=== PATIENT | male | born 1935 | race Caucasian/White ===

== ENCOUNTER 2019-05-24 13:53 | Inpatient (IN) ==
--- NOTE | 2019-05-24 14:52 | PROVIDER DOCUMENTATION ---
HPI-General Adult - General Chief Complaint: Rectal Bleeding Stated Complaint: RECTAL BLEEDING RECHECK Time Seen by Provider: 05/24/19 14:49 Source: patient, family Allergies/Adverse Reactions: Patient Allergies Allergy/AdvReac Type Severity Reaction Status Date / Time rivaroxaban [From Xarelto] AdvReac Unknown Verified 01/01/19 10:54 Home Medications: Home Medication List Medication Instructions Recorded Confirmed Last Taken Type Aspirin 325 mg PO DAILY 06/16/14 05/24/19 01/01/19 History Cholecalciferol (Vit D3) [Vitamin 5,000 mg PO DAILY 06/16/14 05/24/19 01/01/19 History D] LOVAstatin [Mevacor] 20 mg PO DAILY 06/16/14 05/24/19 12/31/18 History Levothyroxine Sodium [Synthroid] 88 mcg PO DAILY 06/16/14 05/24/19 12/31/18 History Potassium Chloride 2 tab PO DAILY 06/16/14 05/24/19 01/01/19 History Ascorbic Acid [Vitamin C] 1 cap PO DAILY 01/01/19 05/24/19 01/01/19 History Cyanocobalamin (Vitamin B-12) 1 tab PO QHS 01/01/19 05/24/19 12/31/18 History [Vitamin B12] Diltiazem HCl [Diltiazem 24Hr Cd] 1 tab PO DAILY 01/01/19 05/24/19 01/01/19 History Famotidine 2 tab PO DAILY 01/01/19 05/24/19 01/01/19 History Furosemide 1 tab PO DAILY 01/01/19 05/24/19 01/01/19 History Melatonin 1 cap PO QHS 01/01/19 05/24/19 12/31/18 History - History of Present Illness -Gen Adult Nature of Presenting Problems: 83yo male presents with CC of rectal bleeding. The patient reports hx of rectal bleeding back to the 16 of April with scope showing small ulcer with diverticulosis and polyps. Pt continued to follow up with PCP and was told his iron was low so he started to take it. Pt reports that he has been recently constipated. Pt reports he was seen yesterday for passing blood, and was cleared for discharge and was told to follow up with GI. He was concerned as bleeding had worsened with bright red blood this morning, but now has slowed down. The patient is not on a blood thinner and stopped his aspirin 2 days ago. Review of Systems - Adult - REVIEW OF SYSTEMS - ADULT Constitutional: reports: no symptoms reported, fever Eyes: reports: no symptoms reported. denies: eye pain Ears, Nose, Mouth & Throat: reports: no symptoms reported. denies: throat pain Cardiovascular: reports: no symptoms reported. denies: chest pain Respiratory: reports: no symptoms reported. denies: shortness of breath Gastrointestinal: reports: rectal bleeding. denies: abdominal pain Genitourinary: reports: no symptoms reported. denies: flank pain Musculoskeletal: reports: no symptoms reported Integumentary: reports: no symptoms reported Neurological: reports: no symptoms reported. denies: dizziness/vertigo Psychiatric: reports: no symptoms reported. denies: alcohol/drug dependence Endocrine: reports: no symptoms reported Hematologic/Lymphatic: reports: no symptoms reported Allergic/Immunologic: reports: no symptoms reported Past History - Adult - PAST MEDICAL HISTORY-ADULT Review of Records: reports: Old Records Reviewed Major Childhood Illnesses: reports: denies history Cardiovascular: reports: A-Fib, HTN, hyperlipidemia Respiratory: reports: COPD Gastrointestinal: reports: denies history Obstetrical/Gynecological: reports: denies history Genitourinary: reports: denies history Musculoskeletal: reports: denies history Neurological: reports: denies history Endocrine/Immune: reports: thyroid disorder Other Conditions: reports: denies history - PRIOR SURGERIES/PROCEDURES Surgical/Procedure History: reports: none - IMMUNIZATION STATUS Childhood Immunizations: See Nurse Assessment Flu Vaccine: See Nurse Assessment - FAMILY HISTORY Family History: reviewed, not pertinent Physical Exam-General - CONSTITUTIONAL General Appearance: appears well, alert, no apparent distress - EYES Eyes: pale conjunctivae. negative: conjuctival exudate, photophobia, sclera injected, scleral icterus - HEAD, EARS, NOSE, MOUTH & THROAT HENMT: moist mucous membranes, pharynx normal - NECK Neck: non-tender, supple - RESPIRATORY Respiratory: normal breath sounds, no respiratory distress - CARDIOVASCULAR Cardiovascular: no edema, other (irregular rhythm) - GASTROINTESTINAL (ABDOMEN) Abdominal Exam: non tender, soft. negative: guarding - GENITOURINARY Rectal Exam: black stool, hemorrhoids. negative: tenderness - MUSCULOSKELETAL Extremity: non-tender. negative: deformity, swelling - SKIN Integumentary: normal color, warm/dry - NEUROLOGIC Neurologic: grossly normal - PSYCHIATRIC Psych/Mental Status: normal mood/affect, normal thought content, normal thought process Progress - PLAN OF CARE/RESULTS Progress/Plan/Lab Results: Vital Signs - 8 hr 05/24/19 13:55 Temperature 98.0 F Pulse Rate 86 Respiratory Rate 18 Blood Pressure 110/71 O2 Sat by Pulse Oximetry 99 Result Diagrams: 05/24/19 16:21 05/24/19 16:21 - REASSESSMENT Reassessment #1 Status: other (Pt currently HDS. It was noted that HBG has dropped from 13 to 11, and patient did have melena on examination. Given that he is federico risk for GI bleeding will plan for admission. Discussed with the GI team who recomended admission to the hospitalist service. Discussed case with the hospitalist team who has accepted the patient.) Departure - Departure Date of Disposition Decision: 05/24/19 Time of Disposition Decision: 18:56 DIAGNOSIS: GI bleed Qualifiers: GI bleed type/associated pathology: melena Qualified Code(s): K92.1 - Melena Disposition: ADMITTED INPATIENT 09 Certified Medical Emergency: Emergent Condition: Fair Referrals and Follow-Ups: Erich Black MD [Primary Care Provider] - - Critical Care Note This patient required my direct & personal management of CC.: No Attestation - Physician/ LES Attestation Patient care was provided by Advanced Practice Provider:: No The physician spent face to face time with patient:: Yes Advanced Practice Provider documentation review:: Supervising physician onsite and consulted in the evaluation and care of this patient. The physician did have a face to face encounter with the patient.
[2019-05-24 16:44] LABS: BASO# 0.02 X1000 (0.0-0.2); BASO% 0.2 % (0.0-0.8); EOS# 0.13 X1000 (0.0-0.7); EOS% 1.3 % (0.0-10.0); HEMATOCRIT 35.7 % (42.0-52.0); HEMOGLOBIN 11.1 g/dL (14.0-18.0); IMM GRAN# 0.02 X1000 (0.0-0.04); IMM GRAN% 0.2 % (0.0-0.5); LYMPH# 1.84 X1000 (1.2-3.4); LYMPH% 17.8 % (20.5-51.1); MCH 27.5 PG (27-31); MCHC 31.1 g/dL (33-37); MCV 88.6 FL (81-99); MONO# 1.37 X1000 (0.11-0.59); MONO% 13.3 % (1.7-9.3); MPV 8.7 FL (7.4-10.4); NEUT# 6.94 X1000 (1.4-6.5); NEUT% 67.2 % (42.2-75.2); PLT 282 X1000 (130-400); RBC 4.03 XMIL (4.7-6.1); RDW 16.2 % (11.5-14.5); WBC 10.32 X1000 (4.8-10.8)
[2019-05-24 16:54] LABS: INR 1.19; PROTIME 15.3 Seconds (11.0-16.0)
[2019-05-24 16:55] LABS: PTT 28.7 Seconds (22.3-41.8)
[2019-05-24 17:11] LABS: AGAP 13; ALB/GLOB RATIO 1.3; ALBUMIN 3.6 g/dL (3.5-5.0); ALKALINE PHOSPHATASE 55 U/L (32-122); BUN 30 mg/dL (8-22); CALCIUM 8.7 mg/dL (8.8-10.2); CHLORIDE 106 mmol/L (98-107); COSMO 288; CREATININE 0.8 mg/dL (0.7-1.2); ESTIMATED GFR > 60; GLUCOSE 100 mg/dL (70-104); GOT 16 U/L (10-34); GPT 11 U/L (10-44); POTASSIUM 4.1 mmol/L (3.5-5.1); SODIUM 141 mmol/L (136-145); TCO2 22 mmol/L (25-35); TOTAL BILIRUBIN 0.34 mg/dL (0.20-1.00); TOTAL PROTEIN 6.4 g/dL (6.3-8.3)
[2019-05-24] MEDS ORDERED: SODIUM CHLORIDE 0.9% INJ ONE ×2 (17:53→18:17)
[2019-05-24] MEDS ORDERED: PROTONIX IV ONE (17:53)
[2019-05-24] MEDS ORDERED: CARDIZEM CD PO SCH (19:45)
[2019-05-24] MEDS ORDERED: ZOFRAN IV PRN (20:45)
[2019-05-24] MEDS: CARDIZEM CD PO SCH (22:34)
[2019-05-24] MEDS: NS 1,000 ML IV SCH (22:35)
[2019-05-24] MEDS: PROTONIX IV SCH ×2 (22:37→23:54)
[2019-05-24 23:03] LABS: HEMATOCRIT 33.2 % (42.0-52.0); HEMOGLOBIN 10.5 g/dL (14.0-18.0)
--- NOTE | 2019-05-25 01:14 | HISTORY AND PHYSICAL ---
ADDENDUM: I have seen and examined Mr. Peres today. Mr. Peres presents to the hospital this afternoon because of rectal bleed. Mr. Peres refers that about a week ago he had both upper and lower GI evaluation by Dr. Loredo. He was told that he has some ulcer in his upper GI studies. Yesterday, he was seen in the ER because of ongoing rectal bleed but was not admitted. However, when he went home, he continued having bright red blood per rectum every time he uses the restroom. Today, he said he was told by the ER provider that the rectal exam did show dark stool. His hemoglobin, which was 12.9 yesterday, is down to 11.1 today. OBJECTIVE: His current physical exam, for the most part, is unremarkable. LABORATORY DATA: Has also been reviewed. No major changes. ASSESSMENT: 1. Enterorrhagia of unclear etiology. The patient will be admitted. We will continue to monitor his H H. We will transfuse if necessary. We will get his GI team to evaluate him. 2. Clinical volume depletion. We will start the patient on gentle IV fluids overnight. 3. History of atrial fibrillation. Currently rate controlled. The patient is on diltiazem. We will start him back. 4. Hypothyroidism. Patient is on levothyroxine. 5. We will also continue to monitor and manage all his other comorbidities. I reviewed my findings with him and the plan with him and the son, who was at the bedside at the time of the encounter. Please refer to the details of the history and physical that has been dictated by the LAB COURIER in the chart. I have discussed the plan with her. cc: Wan Sterling MD
--- NOTE | 2019-05-25 02:17 | HISTORY AND PHYSICAL ---
PRIMARY CARE PROVIDER: Lex Black MD. He also follows the [facility]. RIVET SORTER: Marcela Loredo MD. CHIEF COMPLAINT: Rectal bleeding. HISTORY OF PRESENT ILLNESS: Mr. Peres is an 83-year-old male with a past medical history of atrial fibrillation on Cardizem and low-dose aspirin, hypertension, hyperlipidemia, hypothyroidism. He reports back on April 16, he had a upper and lower GI where Dr. Loredo found ulcers and biopsied some polyps. Also, on May 06 at the [facility], he went and had a physical that showed he had low iron. His primary care provider started him on iron supplement. He reports that he has had hemorrhoids in the past with a hemorrhoidectomy. He stated 2 days ago he started having bright red blood per rectum. He came to the ED yesterday to be evaluated. His hemoglobin and hematocrit was normal. However, after he got home he started having bloody bowel movements every 2 hours since that turned into dark stools. He came to the ED to be re-evaluated. His hemoglobin and hematocrit went from 12 and 40 down to 11 and 35. Hemoccult positive. Hemodynamically stable. Dr. Fonseca will see him in the a.m. We will place him on a clear liquid diet and proton pump inhibitor. He denies any hematemesis, hematuria, nausea, vomiting, diarrhea, chest pain, shortness of breath, weakness, fever, chills, palpitations, or abdominal pain. PAST MEDICAL HISTORY: Atrial fibrillation, hypertension, hemorrhoids, hyperlipidemia, hypothyroidism, iron-deficiency anemia. PAST SURGICAL HISTORY: Basal cell carcinoma removed on the nose years ago, hemorrhoidectomy, colonoscopy and upper endoscopy on April [address] Loredo. FAMILY HISTORY: Reviewed noncontributory. SOCIAL HISTORY: Sons at bedside. He was a smoker for 47 years, 3 packs per day. He quit more than 20 years ago. He was a heavy alcohol drinker till 1990. No alcohol since then. No marijuana or illicit drug use. REVIEW OF SYSTEMS: Twelve-point review of systems complete and negative except for those mentioned in HPI. ALLERGIES: Xarelto, he reports he had hematuria just after 1 dose. HOME MEDICATIONS: 1. Vitamin D3 5000 units p.o. daily. 2. Lovastatin 20 mg p.o. daily. 3. Synthroid 88 mcg p.o. daily. 4. Potassium chloride 2 tablets p.o. daily. 5. Vitamin C 1 capsule p.o. daily. 6. Vitamin B12 1 tab p.o. at bedtime. 7. Cardizem CD 1 tab p.o. daily. 8. Pepcid 2 tablets p.o. daily. 9. Lasix 1 tab p.o. daily. 10. Melatonin 1 capsule p.o. at bedtime. 11. Should be taking ferrous sulfate, however, we do not have that dosage yet. PHYSICAL EXAMINATION: VITAL SIGNS: Temperature is 98 degrees, heart rate 86, respirations 18, blood pressure 110/71, O2 saturation is 99% on room air. GENERAL: Mr. Peres is an 83-year-old male who is sitting up in the bed, in no acute distress. HEENT: Atraumatic, normocephalic. PERRL. He does have some type of growth on the lateral left side of his tongue. He reports he has had it checked out before, they did not really know what it is. NECK: Supple. Trachea midline. CARDIOVASCULAR: Irregularly irregular. No murmurs, gallops, or rubs noted. RESPIRATORY: Lung sounds clear bilaterally. GASTROINTESTINAL: Abdomen is soft, nontender, nondistended. Positive bowel sounds 4 quadrants. No tenderness. EXTREMITIES: Negative for edema. Tennis shoes are still on and laced up, could not assess pedal pulses. Radial pulses were palpable. NEUROLOGIC: No focal deficits noted. DIAGNOSTIC DATA: None. LABORATORY DATA: White count 10, hemoglobin and hematocrit 11 and 35, platelet count is 282,000. Sodium 141, potassium 4.1, BUN 30, creatinine 0.8. Blood glucose is 100. ASSESSMENT/PLAN: 1. Bright red blood per rectum, possibly hemorrhoidal. However, patient does have a history, I believe, of some diverticulosis at some point, I believe he reported on his last colonoscopy as well as ulcers. We will continue to follow his hemoglobin and hematocrit closely. Transfuse if needed. We will keep him on a clear liquid diet. Continue proton pump inhibitor. Dr. Fonseca will see him in the a.m. Hemodynamically, he is stable. 2. Atrial fibrillation. We will given his Cardizem dose now. We will hold his aspirin. 3. Hypertension, stable. 4. Hyperlipidemia. 5. Hypothyroidism. 6. Iron deficiency anemia. 7. Hemorrhoids status post hemorrhoidectomy years ago. He was unsure if he had any hemorrhoids at this time. However, he stated that the ED physician told him that he might have felt the beginnings of some hemorrhoids. 8. Further recommendation to follow physician evaluation, laboratory and diagnostic data. Dictated by LEA Luo for Wan Sterling MD cc: MD Erich Gavin MD Khurshid Yousuf, MD
[2019-05-25 06:36] LABS: BASO# 0.01 X1000 (0.0-0.2); BASO% 0.1 % (0.0-0.8); EOS# 0.06 X1000 (0.0-0.7); EOS% 0.6 % (0.0-10.0); HEMATOCRIT 31.1 % (42.0-52.0); HEMOGLOBIN 9.6 g/dL (14.0-18.0); IMM GRAN# 0.03 X1000 (0.0-0.04); IMM GRAN% 0.3 % (0.0-0.5); LYMPH# 1.22 X1000 (1.2-3.4); LYMPH% 11.7 % (20.5-51.1); MCH 27.4 PG (27-31); MCHC 30.9 g/dL (33-37); MCV 88.6 FL (81-99); MONO# 1.14 X1000 (0.11-0.59); MPV 9.2 FL (7.4-10.4); NEUT# 7.95 X1000 (1.4-6.5); NEUT% 76.3 % (42.2-75.2); PLT 277 X1000 (130-400); RBC 3.51 XMIL (4.7-6.1); WBC 10.41 X1000 (4.8-10.8)
[2019-05-25 07:05] LABS: AGAP 11; ALB/GLOB RATIO 1.1; ALBUMIN 3.1 g/dL (3.5-5.0); ALKALINE PHOSPHATASE 46 U/L (32-122); BUN 29 mg/dL (8-22); CALCIUM 8.3 mg/dL (8.8-10.2); CHLORIDE 108 mmol/L (98-107); COSMO 288; CREATININE 0.8 mg/dL (0.7-1.2); ESTIMATED GFR > 60; GLUCOSE 106 mg/dL (70-104); GOT 15 U/L (10-34); GPT 9 U/L (10-44); MAGNESIUM 2.1 mg/dL (1.5-2.7); POTASSIUM 4.2 mmol/L (3.5-5.1); SODIUM 141 mmol/L (136-145); TCO2 22 mmol/L (25-35); TOTAL BILIRUBIN 0.47 mg/dL (0.20-1.00); TOTAL PROTEIN 5.9 g/dL (6.3-8.3)
[2019-05-25] MEDS: CARDIZEM CD PO SCH ×2 (08:26→21:31)
[2019-05-25] MEDS: PROTONIX IV SCH ×2 (08:26→21:31)
--- NOTE | 2019-05-25 09:51 | EKG Report ---
Test Performed on : 05/25/2019 05:48:53 AM Test Reason : afib Blood Pressure : / mmHG Vent. Rate : 103 BPM Atrial Rate : 129 BPM P-R Int : 000 ms QRS Dur : 106 ms QT Int : 382 ms P-R-T Axes : 000 -40 -28 degrees QTc Int : 500 ms Atrial fibrillation. with rapid ventricular response. with premature ventricular or aberrantly conduc kathleen complexes. Left axis deviation Incomplete right bundle branch block Nonspecific ST and T wave abnormality Abnormal ECG When compared with ECG of 23-MAY-2019 10:09, (Unconfirmed) Vent. rate has increased BY 36 BPM Nonspecific T wave abnormality, improved in Inferior leads Nonspecific T wave abnormality now evident in Lateral leads Confirmed by Radha Israel MD ([id number]) on 05/26/2019 5:29:36 PM
[2019-05-25] MEDS ORDERED: DIPRIVAN 1% ONE ×2 (12:11→12:28)
[2019-05-25] MEDS ORDERED: EPINEPHRINE SYRINGE ONE (12:16)
--- NOTE | 2019-05-25 12:37 | ENDOSCOPY OPERATIVE NOTE ---
[facility] ENDOSCOPY OPERATIVE NOTE , EGD PROCEDURE REPORT PATIENT: Phil Peres ADMISSION DATE: 05/25/2019 MR#: [id number] : 1935 PROCEDURE DATE: 05/25/2019 SURGEON: Carl Fonseca MD STATUS: inpatient COSMETIC COUNSELOR: Aaliyah Zhang and Shani Romero PREOPERATIVE DIAGNOSIS: The patient is a 83 yr old male here for an EGD due to acute post hemorrhagi c anemia, melena, and hematochezia. PROCEDURE PERFORMED: EGD w/ directed submucosal injection(s), any substance EGD w/ control of bleeding MEDICATIONS: Per Anesthesia TOPICAL ANESTHETIC: none CONSENT: The patient understands the risks and benefits of the procedure and understands that these r isks include, but are not limited to: sedation, allergic reaction, infection, perforation and/or bleeding. Alternative means of evaluation and treatment include, among others: physical exam, x-rays, and/or surgical intervention. The patient elects to proceed with this endoscopic procedure. HISORY AND PHYSICAL: 05/25/2019 DESCRIPTION OF PROCEDURE: During intra-op preparation period all mechanical and medical equipment was checked for proper function. Hand hygiene and appropriate measures for infection prevention was taken. After the risks, benefits and alternatives of the procedure were thoroughly explained, Informed consent was verified, confirmed and timeout was successfully executed by the treatment team. The patient was anesthetized with topical anesthesia and the [id number] ([id number]) endoscope was introduced through the mouth and advanced to the second portion of the duoden um. Retroflexion was performed in the stomach and revealed no abnormalities. The gastroscope was then slowly withdraw n and removed. ESOPHAGUS: The mucosa of the esophagus appeared normal. STOMACH: The mucosa of the stomach appeared normal. 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 Bipolar (BICAP) cautery with a 7Fr probe was applied to the sites for 5 seconds using 15 phan power. Moderate pressure was applied to the cautery site with good treatment effect. Otherwise normal duodenum. SPECIMENS REMOVED: No ADVERSE EVENTS: There were no complications. POSTOPERATIVE DIAGNOSIS: 1. The mucosa of the esophagus appeared normal 2. The mucosa of the stomach appeared normal 3. 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 Otherwise normal duodenum RECOMMENDATIONS: 1. Resume pre-procedure medications 2. Start Full liquid diet for 1 Day(s) 3. Return to floor when standard parameters are met REPEAT EXAM: Carl Fonseca MD eSigned: Carl Fonseca MD 05/25/2019 12:37 PM cc: Erich Black MD PATIENT NAME: Phil Peres MR#: [id number]
--- NOTE | 2019-05-25 13:58 | PROGRESS NOTE ---
DATE: 05/25/2019 SUBJECTIVE: I have seen and examined Mr. Peres today. Mr. Peres refers to be doing well. He said he had a bowel movement at about 3 this morning. There was a lot of blood in it, most of it was kind of bright red blood. However later on today at about around 6 he felt he was going to have another bowel movement. When he went to the restroom, it was just passing gas. When he wiped the tissue had a dark stool. He denies any dizziness. OBJECTIVE: Vital signs: Blood pressure is 104/53, pulse of 101, respirations 15, temperature 98 degrees. General: Mr. Peres is an 83-year-old elderly male. He is in bed no distress. HEENT: Mucosa is pink and moist. Anicteric. Acyanotic. Neck: Supple. Chest: Clear to auscultation. No crepitations. No rhonchi. Cardiovascular: Regular rate and rhythm. No murmurs, no rubs, no gallops. GI: Abdomen soft, nontender. Bowel sounds present. Extremities: No pedal edema PATIENT INTAKE REPRESENTATIVE patient is awake, alert, oriented. There is no focal deficit. LABORATORY DATA: Hemoglobin is down to 9.6. Rest of CBC is unremarkable chemistry is completely within normal ranges. ASSESSMENT: 1. Painless rectal bleed. The patient is pending a gastroenterology evaluation today. 2. Clinical volume depletion. Will continue with IV fluids. 3. History of atrial fibrillation, currently rate controlled. Patient is on diltiazem. 4. Hypothyroidism will continue with the levothyroxine. 5. Dyslipidemia. We will restart her low lovastatin after the gastroenterology intervention. cc: Wan Sterling MD
--- NOTE | 2019-05-25 16:45 | GASTROENTEROLOGY CONSULTATION ---
DATE: 05/25/2019 CONSULTING PHYSICIAN: Dr. Sterling REASON FOR CONSULTATION: Gastrointestinal bleed. HISTORY: This is an 83-year-old white male patient of Dr. oLredo. He has a history of a GI bleed. Apparently he has had some bleeding early in April and had undergone EGD and colonoscopy for that. EGD apparently had showed an ulcer in the antrum, which was biopsied and it was benign. He also had diverticulosis in his colon. Following his panendoscopy, he had visited the [facility] and was found to have iron deficiency and was started on iron supplements. He had initially noticed some dark stool, but it had progressively gotten darker and apparently had a bad odor to it. Recently he had noticed bright red blood in the commode after he had a bowel movement. He was scheduled to see Dr. Loredo this Sunday, but his symptoms got worse and he had more redness in his stool. He came to the emergency room, not only because of his bleeding, but he has some symptoms of near syncopal episodes, dizziness and lightheadedness also. He has not had any chest pain, shortness of breath or palpitation, but his hemoglobin had dropped. In the emergency room he was found that hemoglobin has dropped from 12.9 on to 9.6 today. He continues to have blood in his stool. His BUN was elevated to 30 with creatinine of 0.8. He has received hydration and has felt better since the since his arrival to the hospital. He reports no indigestion, heartburn, or reflux symptoms. He denies dysphagia, odynophagia, has not had any hematemesis or coffee-ground emesis. Denies any abdominal pain or abdominal cramps. His appetite has been good. He has been eating well till admission. He has been on clear liquids. This morning he had a small sip of apple juice about 8 o'clock. PAST MEDICAL HISTORY: Significant for hypertension, hyperlipidemia, hypothyroidism, also carries a diagnosis of iron deficiency anemia and chronic atrial fibrillation. PAST SURGICAL HISTORY: He has had hemorrhoidectomy and basal cell cancer removed from his nose. MEDICATIONS: Prior to hospitalization he was on aspirin, vitamin C, vitamin D, vitamin B12, diltiazem, Lasix, Synthroid, Mevacor, melatonin, Prilosec, and potassium chloride. ALLERGIES: Apparently he has had some adverse reaction to Xarelto. SOCIAL HISTORY: He is retired and lives by himself. Does not smoke. He used to smoke earlier. Does not drink, does not do illicit drugs. FAMILY HISTORY: Noncontributory. REVIEW OF SYSTEMS: As per HPI as above. PHYSICAL EXAMINATION: GENERAL: Very pleasant white male, but he is slightly anxious. He is lying in bed. He appears to be in no distress.Vital Signs: Vitals temperature 90 degrees Fahrenheit, pulse ranged from 52 to 110. Blood pressure is 102/63. HEENT: Head is atraumatic, normocephalic. Eyes, conjunctivae slightly pale. Sclerae anicteric. Nares are patent. No discharge. Mouth buccal mucosa is moist. Throat is normal. Neck: Supple no lymphadenopathy, thyromegaly. Chest: Chest bilaterally symmetrical. It is moving with respirations. Breath sounds audible bilaterally. No rhonchi or crepitations could be heard. Heart: No murmur could be appreciated. Abdomen: Abdomen is full. It is soft it is nontender. No masses were appreciated. Bowel sounds audible. Extremities: No pedal edema, cyanosis, clubbing was noted. [employer]: Grossly intact. No sensory or motor deficit. LABORATORIES: Reviewed which showed WBC 10.4, hemoglobin is 9.6 today. It had dropped from 12.9 on . MCV 88.6, platelets are is 277. Sodium 141, potassium 4.2, chloride 108, bicarb 22, BUN is 29 today, creatinine 0.8, glucose 106, calcium 8.3, AST 15, ALT 9, albumin is 3.1, total protein 5.9. IMPRESSION: This 83-year-old gentleman has presented with a history of weakness and dizziness, was found to be anemic. He has had some melena with blood mixed in his stool. Esophagogastroduodenoscopy done in April had shown antral ulcer. Question of possible peptic ulcer disease or bleeding ulcer. He was hemodynamically unstable and was symptomatic from his drop in his hemoglobin and hematocrit. He has stabilized since hydration has been started. His continues to have small amount of blood in his stool. Because of his elevated BUN and presentation of melena along with some bright red there is question of possible upper gastrointestinal bleed from his peptic ulcer disease. I will proceed with esophagogastroduodenoscopy for therapeutic purposes and depending on the findings per plan will be made. He has painless bleeding. If the esophagogastroduodenoscopy is negative, could be diverticular bleed. Also, he was found to have diverticulosis on his colonoscopy done a month ago. If esophagogastroduodenoscopy is negative, will be he will need a colonoscopy if he continues to bleed. I have explained the findings and plan to the patient and his son who was present at bedside. All the pertinent questions answered. We will proceed with esophagogastroduodenoscopy as soon as possible. In the meantime, I would continue proton pump inhibitor I IV and continue to check hemoglobin and hematocrit , transfuse as necessary and continue hemodynamic resuscitation and management of other medical problem. cc: Carl Fonseca MD
[2019-05-25] MEDS: NS 1,000 ML IV SCH ×2 (19:41→21:47)
[2019-05-25] MEDS: SYNTHROID PO SCH (21:31)
[2019-05-26 07:08] LABS: HEMATOCRIT 26.8 % (42.0-52.0); HEMOGLOBIN 8.4 g/dL (14.0-18.0); MCH 28.3 PG (27-31); MCHC 31.3 g/dL (33-37); MCV 90.2 FL (81-99); MPV 8.7 FL (7.4-10.4); RBC 2.97 XMIL (4.7-6.1); RDW 16.3 % (11.5-14.5); WBC 9.98 X1000 (4.8-10.8)
[2019-05-26 07:20] LABS: AGAP 10; ALBUMIN 3.1 g/dL (3.5-5.0); BUN 19 mg/dL (8-22); CALCIUM 8.1 mg/dL (8.8-10.2); CHLORIDE 110 mmol/L (98-107); COSMO 285; CREATININE 0.8 mg/dL (0.7-1.2); ESTIMATED GFR > 60; GLUCOSE 100 mg/dL (70-104); PHOSPHORUS 2.9 mg/dL (2.7-4.5); SODIUM 142 mmol/L (136-145); TCO2 22 mmol/L (25-35)
[2019-05-26] MEDS: PROTONIX IV SCH ×2 (09:04→22:23)
[2019-05-26 10:35] LABS: HEMOGLOBIN 9.4 g/dL (14.0-18.0)
[2019-05-26] MEDS: THERA M PLUS PO SCH (10:51)
[2019-05-26] MEDS: CARAFATE PO SCH ×3 (10:51→22:31)
--- NOTE | 2019-05-26 11:40 | GASTROENTEROLOGY PROGRESS NOTE ---
DATE: 05/26/2019 SUBJECTIVE: Mr. Peres is an 83-year-old, male. He was sitting at the side of the bed. The patient has denied any abdominal pain, nausea, vomiting, and he has also denied noticing any blood in his stools today. OBJECTIVE: Vital Signs: Temperature 98.1 degrees, pulse 60, respirations 17, blood pressure 122/64, oxygen saturation 100% on room air. The patient's weight is 176 pounds. BMI is 24.6 kg/m2. General: He is alert and oriented x3, and in no acute distress. HEENT: Pale conjunctivae. No icterus. PERRL. Neck: Supple. Lungs: Clear to auscultation. Cardiovascular: Regular rate and rhythm. Abdomen: Soft, nontender, nondistended. Active bowel sounds heard in all 4 quadrants. Extremities: No clubbing, no cyanosis, no edema. Pedal pulses 2+ present bilaterally. Neurologic: He is alert and oriented x3, and in no acute distress. LABORATORY DATA: WBCs are 9.98, RBC is 2.97, hemoglobin 9.4, hematocrit is 31.0, platelet count is 237,000. Sodium is 142, potassium 4.0, chloride 110, carbon dioxide 22, anion gap 10, BUN 19, creatinine is 0.8, glucose 100, calcium 8.1, phosphorus 2.9, albumin is 3.1. IMPRESSION AND PLAN: GI bleed Anemia Diverticulosis of the colon on last colonoscopy in April [address] Loredo Duodenal AVM PLAN: is an 83-year-old, male with a history of diverticulosis of the colon. An endoscopy was done on 05/25/2019. 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 The patient is currently on a full liquid diet, and he has been able to tolerate his diet well. The patient's hemoglobin and hematocrit today are 9.4 and 31.0. It has trended slightly upwards. We will continue to monitor his hemoglobin and hematocrit, and if it drops below 7, transfuse packed red blood cells per protocol with a goal of 7 to 8 g/dL. The patient is currently receiving intravenous fluids, normal saline at 50 mL/h, PPI's twice a day. The patient is also on iron and multivitamin for his anemia. He is receiving Carafate 1 gram twice a day and Metamucil. For his bowel regimen he is on Aura-Colace 1 tablet twice a day. The patient does have an appointment with Dr. Loredo on Sunday in the morning. We will follow him up as an outpatient. This plan was discussed with Dr. Stern. Please call us for any further questions or concerns. Dictated by LEA Lozada for Ronen Stern MD cc: Ronen Stern MD I have seen and examined the patient myself and I agree with the above plan of care. Please call us with any questions or concerns. MTDBreana
--- NOTE | 2019-05-26 13:06 | PROGRESS NOTE ---
DATE: 05/26/2019 SUBJECTIVE: This morning, Mr. Peres refers to be doing well. He said he has tried using the restroom, but he did not have any bowel movement. We were concerned early on because his blood count had gone to 8.4, however, a repeat is 9.4, so I am sure that was a lab error. In any case, he denies any ongoing bleeding. Son was at the bedside at the time of the encounter. OBJECTIVE: Vital signs: Blood pressure is 116/59, pulse of 73, respirations 18, temperature 97.7 degrees. General: Mr. Peres is 83 years old, very well kept elderly male. He is in bed. No distress. Mucosa is pink and moist. Anicteric. Acyanotic. Neck: Supple. Chest: Clear to auscultation. There were no crepitations, no rhonchi. Cardiovascular: Regular rate and rhythm. No murmurs, no rubs, no gallops. Abdomen: Soft, nontender. Bowel sounds present. Extremities: No pedal edema. COMMERCIAL DECORATOR: Patient is awake, alert, and oriented. There is no focal deficit. LABORATORY DATA: Has been reviewed from early this morning where hemoglobin was 8.4. However, repeat at 10 shows 9.4. Chemistry is within normal range. ASSESSMENT: 1. Painless rectal bleed, presumably from diverticular etiology. The patient's bleeding has resolved. He has been evaluated by Gastroenterology as well. 2. Duodenal arteriovenous malformations. The patient is status post bipolar cautery during esophagogastroduodenoscopy yesterday. Hemoglobin and hematocrit seem to be stable. We are going to repeat it and follow accordingly. 3. Clinical volume depletion, improved. 4. History of atrial fibrillation, currently rate controlled. Patient is on oral diltiazem. 5. Hypothyroidism. Patient is on levothyroxine. 6. Dyslipidemia, stable on lovastatin. PLAN: In general, I think Mr. Peres is stable. Early on this morning hemo, his hemoglobin was really lower which was concerning. However, a repeat seems to be stable and better. We are going to monitor hemoglobin and hematocrit every 6 hours today. We will transfuse if there is a downward trend, but if it is stable, I think he can be discharged. I have discussed the case with Dr. Stern and he thinks that the rectal bleed was probably diverticular in origin, and that Mr. Peres had colonoscopy just about [address] Loredo, and that there would not be any major difference doing another colonoscopy now. A colonoscopy will only be attempted if there is a hemorrhage. If not, transfuse as indicated and if bleeding and hemoglobin and hematocrit remain stable, then the patient can be discharged and follow up with them in the clinic. cc: Wan Sterling MD
[2019-05-26] MEDS: NS 1,000 ML IV SCH (15:40)
[2019-05-26 17:23] LABS: HEMATOCRIT 26.6 % (42.0-52.0); HEMOGLOBIN 8.4 g/dL (14.0-18.0)
[2019-05-26] MEDS: METAMUCIL PO SCH (22:22)
[2019-05-26] MEDS: SYNTHROID PO SCH (22:23)
[2019-05-26] MEDS: CARDIZEM CD PO SCH (22:23)
[2019-05-26] MEDS: FERROUS SULFATE PO SCH (22:23)
[2019-05-26] MEDS: PERICOLACE PO SCH (22:23)
[2019-05-26 22:39] LABS: HEMATOCRIT 26.9 % (42.0-52.0); HEMOGLOBIN 8.2 g/dL (14.0-18.0)
[2019-05-27] MEDS: CARAFATE PO SCH (06:19)
[2019-05-27 07:26] LABS: HEMATOCRIT 27.8 % (42.0-52.0); HEMOGLOBIN 8.6 g/dL (14.0-18.0); MCHC 30.9 g/dL (33-37); MCV 90.6 FL (81-99); MPV 8.9 FL (7.4-10.4); RBC 3.07 XMIL (4.7-6.1); RDW 16.6 % (11.5-14.5); WBC 8.67 X1000 (4.8-10.8)
[2019-05-27 07:27] VITALS: BP 114/77
[2019-05-27] MEDS: PROTONIX IV SCH (07:41)
[2019-05-27] MEDS: METAMUCIL PO SCH (07:42)
[2019-05-27] MEDS: PERICOLACE PO SCH (07:42)
[2019-05-27] MEDS: THERA M PLUS PO SCH (07:42)
[2019-05-27] MEDS: FERROUS SULFATE PO SCH (07:42)
--- NOTE | 2019-05-27 16:11 | GASTROENTEROLOGY PROGRESS NOTE ---
DATE: 05/27/2019 SUBJECTIVE: Mr. Peres is an 83-year-old male. He was sitting on the side of the bed. The patient has denied any nausea, vomiting, abdominal pain, or denies noticing having any further bleeding episodes. He has discharge orders to go home today. OBJECTIVE: Vital Signs: Temperature 97.5 degrees, pulse 70, respirations 19, blood pressure 114/77, oxygen saturation 97% on room air. The patient's weight is 176 pounds. BMI is 24.6 kg/m2. General: He is alert, oriented x3, and in no acute distress. HEENT: Pale conjunctivae, no icterus. PERRL. Neck: Supple. Lungs: Clear to auscultation. Cardiovascular: Regular rate and rhythm. Abdomen: Soft, nontender, nondistended. Active bowel sounds heard in all 4 quadrants. Extremities: No clubbing, no cyanosis, no edema. Pedal pulses 2+ present bilaterally. Neurologic: He is alert oriented x3, and in no acute distress. LABS: WBCs are 8.67, RBC 3.07, hemoglobin 8.6, hematocrit is 27.8, platelet count is 256,000. Sodium 142, potassium 4.0, chloride 110, carbon dioxide 22, anion gap 10, BUN 19, creatinine is 0.8, glucose 100 calcium 8.1, phosphorus 2.9, albumin is 3.1. IMPRESSION AND PLAN: GI bleed Anemia Diverticulosis of the colon Duodenal AVM PLAN: Ms. Peres is an 83-year-old male with a history of diverticulosis of the colon. The patient had an EGD done on 05/25 which showed that he had an AVM which was cauterized in the duodenum. The patient has currently denied any more bleeding episodes. He has discharge orders to go home today. The patient does have an appointment with Dr. Loredo tomorrow in the morning. We will follow him up as an outpatient. This plan was discussed with Dr. Godwin. Please call us for any further questions or concerns. Dictated by LEA Lozada for Last Godwin MD Physician Attestation I have discussed and reviewed the note by Jessica TATE and agree with plan as documented. [facility]
--- NOTE | 2019-05-28 01:09 | DISCHARGE SUMMARY ---
ADMISSION DATE: 05/26/2019 DISCHARGE DATE: 05/27/2019 DISCHARGE DIAGNOSES: 1. Arteriovenous malformation found in the 2nd part of the duodenum. 2. Gastrointestinal bleed secondary to condition #1. 3. Atrial fibrillation, rate controlled. 4. Hypertension. 5. Hyperlipidemia. 6. Hypothyroidism. 7. Iron deficiency anemia. 8. Hemorrhoids. Status post hemorrhoidectomy years ago. CONSULTATIONS: Carl Fonseca MD, Gastroenterology. PROCEDURES: Endoscopy performed by Dr. Fonseca showed mucosa of the esophagus appeared normal with 2 AVM's measuring 4 mm in size found in the 2nd part of the duodenum that was cauterized. HOSPITAL COURSE: In brief, this is an 89-year-old male with past medical history of atrial fibrillation, on Cardizem and low-dose aspirin, hypertension, hyperlipidemia. Back in April 16, patient had an upper and lower GI endoscopy. Patient presented to the emergency department complaining of having bloody stools. Hemoglobin had dropped some. GI was consulted, who performed upper endoscopy with results as above. He was cleared from GI standpoint. Patient is going to be discharged in stable condition. The patient actually has an appointment with Dr. Loredo tomorrow, so we have recommend him to see him. DISCHARGE PHYSICAL EXAMINATION: Vital Signs: Temperature 97.5 degrees, heart rate 75, respiratory 19, blood pressure 114/77, O2 saturation 97% on room air. General: This is an 83- year-old male, lying in bed, in no acute distress. Cardiovascular: S1, S2 heard. No murmurs, gallops, or rubs. Regular rate and rhythm. Respiratory: Clear bilaterally to auscultation. No work of breathing or using accessory muscles. Abdomen: Soft, nontender to palpation. Bowel sounds present. No organomegaly. No organomegaly. Extremities: No clubbing, cyanosis or edema. Peripheral pulses present in both legs. Neurologic: The patient is alert, oriented x3. Moves 4 extremities. DISCHARGE DISPOSITION: Home to self-care. DISCHARGE INSTRUCTIONS: Follow up with Dr. Loredo in the office in a week. DISCHARGE MEDICATIONS: 1. Multivitamin 1 tablet p.o. daily. 2. Sucralfate 1 g before meals and also at bedtime for 30 days. 3. Ferrous sulfate 1 tablet p.o. b.i.d. 4. Pantoprazole 40 mg, 1 tablet p.o. daily. 5. Lovastatin 20 mg, 1 tablet p.o. at bedtime. 6. Cholecalciferol/vitamin D3, 5000 units, 1 tablet p.o. daily. 7. Aspirin 325 mg, 1 tablet p.o. daily. 8. Potassium chloride 1 tablet p.o. daily. 9. Cyanocobalamin 1 tablet p.o. at bedtime. 10. Furosemide 1 tablet p.o. daily. 11. Melatonin 1 tablet p.o. daily. 12. Diltiazem 180 mg, 1 tablet p.o. daily. 13. Levothyroxine 88 mcg, 1 tablet p.o. daily. TIME SPENT: Discharging this patient was 34 minutes. cc: River Dasilva MD
== END 2019-05-27 10:14 | disposition home or self-care (01) | DRG 378 ==
LOC: ED 13:53 → INTOOBSV 20:15 → 4N 20:15 → SUATTDRO 05-26 09:25
PROVIDERS: ATTEND Internal Medicine
PROC: EN.HEAT (2019-05-25 12:14)